=== PATIENT | male | born 1940 | race Caucasian/White ===

== ENCOUNTER → 2018-05-31 | Outpatient (CLI) | payer OTHER ==
[~2018-05-31] VITALS: Ht 180.3 cm; Wt 95.3 kg
[~2018-05-31] MED LIST: PRINIVIL20 MG PO; XARELTO15 MG PO
[2018-05-31 09:15] LABS: CALCIUM 9.7 mg/dL (8.5-10.1); CREATININE 1.1 mg/dL (0.6-1.3); POTASSIUM 4.7 mmol/L (3.5-5.1)
[2018-05-31 09:31] LABS: ABSOLUTE EOSINOPHILS 0.1 thou/uL (0.0-0.7); ABSOLUTE LYMPHOCYTES 1.2 thou/uL (0.8-5.3); ABSOLUTE MONOCYTES 0.6 thou/uL (0.0-1.2); ABSOLUTE NEUTROPHILS 3.6 thou/uL (1.6-8.1); BASOPHILS 0.5 %; EOSINOPHILS 2.7 %; HEMATOCRIT 43.3 % (42.0-52.0); HEMOGLOBIN 14.6 gm/dL (14.0-18.0); LYMPHOCYTES 21.2 %; MCH 32.2 pg (26.0-34.0); MCHC 33.7 g/dL (28.0-37.0); MCV 95.5 fL (80.0-100.0); MONOCYTES 10.7 %; MPV 8.8 fl. (7.2-11.1); NUCLEATED RBCS 0 /100WBC; PLATELET COUNT* 169 thou/uL (150-400); POLYS 64.9 %; RBC 4.53 mil/uL (4.50-6.00); RDW-CV 14.5 % (10.5-14.5); WBC 5.5 thou/uL (4.0-11.0)
[2018-05-31 11:18] VITALS: BP 146/78
== END ==
LOC: M.ULTRA 07:30 → M.ERS 07:36
PROVIDERS: Emergency Medicine Emergency Medical Services
DX: I82.432 Acute embolism and thrombosis of left popliteal vein (principal); I82.442 Acute embolism and thrombosis of left tibial vein; I10 Essential (primary) hypertension

== ENCOUNTER → 2018-06-26 | Outpatient (CLI) | payer OTHER | LOC: M.ULTRA 07:26 | DX: I82.432 Acute embolism and thrombosis of left popliteal vein (principal); I82.442 Acute embolism and thrombosis of left tibial vein ==

== ENCOUNTER → 2018-07-09 | Outpatient (CLI) | payer OTHER ==
--- NOTE | 2018-07-09 12:03 | 2DMMODE ---
[place] [address] 2 D/M-MODE ECHOCARDIOGRAM Name: AMBROSIO SUNSHINE Room: [facility]#: [id number] Admission: 07/09/18 Attend Phys: Joce Huffman Discharge: Date of : 38 Date of Service: 07/09/18 1203 Report #: [id number] THIS REPORT FOR: //name// APPROVED REPORT Study performed: 07/09/2018 07:59:44 EXAM: Comprehensive 2D, Doppler, and color-flow Echocardiogram Patient Location: Out-Patient BSA: 2.10 HR: 72 bpm BP: 116/72 mmHg Other Information Study Quality: Good Indications Hypertension/HDD 2D Dimensions IVSd: 11.04 (7-11mm) LVOT Diam: 20.03 (18-24mm) LVDd: 35.53 mm PWd: 11.54 (7-11mm) Ascending Ao: 34.49 (22-36mm) LVDs: 21.50 (25-40mm) Aortic Root: 25.61 mm Volumes Left Atrial Volume (Systole) LA ESV Index: 11.90 mL/m2 Aortic Valve AoV Peak Victor Hugo.: 1.34 m/s AO Peak Gr.: 7.16 mmHg LVOT Max P.14 mmHg AO Mean Gr.: 3.76 mmHg LVOT Mean P.39 mmHg LVOT Max V: 0.89 m/s AO V2 VTI: 23.82 cm LVOT Mean V: 0.53 m/s TAMERA (VTI): 3.22 cm2 LVOT V1 VTI: 24.33 cm Mitral Valve E/A Ratio: 0.45 MV Decel. Time: 379.17 ms MV E Max Victor Hugo.: 0.48 m/s MV PHT: 109.96 ms MVA (PHT): 2.00 [place] [address] 2 D/M-MODE ECHOCARDIOGRAM Name: AMBROSIO SUNSHINE Room: [facility]#: [id number] Admission: 07/09/18 Attend Phys: Joce Huffman Discharge: Date of : 38 Date of Service: 07/09/18 1203 Report #: [id number] TDI E/Lateral E': 5.33 E/Medial E': 8.00 Medial E' Victor Hugo.: 0.06 m/s Lateral E' Victor Hugo.: 0.09 m/s Pulmonary Valve PV Peak Victor Hugo.: 0.99 m/s PV Peak Gr.: 3.94 mmHg Tricuspid Valve RAP Estimate: 5.00 mmHg TR Peak Gr.: 21.65 mmHg RVSP: 26.65 mmHg PA Pressure: 26.65 mmHg Left Ventricle The left ventricle is normal size. There is normal LV segmental wall motion. There is normal left ventricular wall thickness. Left ventricular systolic function is normal. LVEF is 55-60%. Grade I - abnormal relaxation pattern. Right Ventricle The right ventricle is normal size. The right ventricular systolic function is normal. Atria The left atrium size is normal. The right atrium size is normal. Aortic Valve The aortic valve is normal in structure. Trace aortic regurgitation. There is no aortic valvular stenosis. Mitral Valve The mitral valve is normal in structure. Mild mitral regurgitation. No evidence of mitral valve stenosis. Tricuspid Valve The tricuspid valve is normal in structure. Mild tricuspid regurgitation. The RVSP is 32 mmHg. Pulmonic Valve The pulmonary valve is normal in structure. There is no pulmonic valvular regurgitation. Great Vessels The aortic root is normal in size. IVC [place] [address] 2 D/M-MODE ECHOCARDIOGRAM Name: AMBROSIO SUNSHINE CAT Room: [facility]#: [id number] Admission: 07/09/18 Attend Phys: Joce Huffman Discharge: Date of : 38 Date of Service: 07/09/18 1203 Report #: [id number] collapses >50% with inspiration. Pericardium There is no pericardial effusion. <Conclusion> The left ventricle is normal size. There is normal left ventricular wall thickness. Left ventricular systolic function is normal. LVEF is 55-60%. Grade I - abnormal relaxation pattern. Trace aortic regurgitation. Mild mitral regurgitation. Mild tricuspid regurgitation. The RVSP is 32 mmHg. IVC is normal in size and collapses >50% with inspiration. <ELECTRONICALLY SIGNED> By: Joao Chau MD, FACC 07/09/18 1203 120 120 Joao Chau MD, FACC /INF
== END ==
LOC: M.CRD 07:50
DX: I08.1 Rheumatic disorders of both mitral and tricuspid valves (principal); I10 Essential (primary) hypertension; Z88.5 Allergy status to narcotic agent

== ENCOUNTER 2020-06-01 23:48 | Emergency (ER) | payer OTHER ==
[~2020-06-01] VITALS: Ht 180.3 cm; Wt 95.3 kg
[2020-06-02 01:26] LABS: APTT 26.3 Seconds (25.0-31.3); INR 1.2; PROTIME 13.1 Seconds (9.20-11.50)
[2020-06-02 01:30] LABS: CALCIUM 8.3 mg/dL (8.5-10.1); CREATININE 2.2 mg/dL (0.6-1.3)
[2020-06-02 01:34] LABS: ALBUMIN 2.5 g/dL (3.4-5.0); MAGNESIUM 1.9 mg/dL (1.8-2.4); TOTAL BILIRUBIN 1.1 mg/dL (<0.1-1.0); TOTAL PROTEIN 5.8 g/dL (6.4-8.2)
[2020-06-02 01:41] LABS: HEMOGLOBIN 11.1 gm/dL (14.0-18.0); RDW-CV 15.3 % (10.5-14.5)
[2020-06-02 02:08] LABS: MCH 31.7 pg (26.0-34.0); MCHC 31.6 g/dL (28.0-37.0); MCV 100.1 fL (80.0-100.0); MPV 9.3 fl. (7.2-11.1); NUCLEATED RBCS 0 /100WBC; PLATELET COUNT* 154 thou/uL (150-400); WBC 11.4 thou/uL (4.0-11.0)
[2020-06-02 03:55] LABS: BE -18.2 mmol/L (-2 to +3); PCO2 33.4 mmHg (35.0-45.0); PO2 97.5 mmHg (75.0-100.0)
[2020-06-02 03:57] LABS: pH 7.108 (7.340-7.450)
[2020-06-02 04:15] LABS: ABSOLUTE EOSINOPHILS 0.1 thou/uL (0.0-0.7); ABSOLUTE LYMPHOCYTES 3.1 thou/uL (0.8-5.3); ABSOLUTE MONOCYTES 1.1 thou/uL (0.0-1.2); ABSOLUTE NEUTROPHILS 7.1 thou/uL (1.6-8.1); ATYPICAL LYMPHS 1 %
[2020-06-02 04:16] LABS: PLATELET ESTIMATE ADEQUATE
[2020-06-02 10:42] VITALS: BP 0/0
--- NOTE | 2020-06-03 12:42 | EKG ---
[place] [id number] ELECTROCARDIOGRAM REPORT Name: AMBROSIO SUNSHINE Room: [facility]#: [id number] Admission: 06/01/20 Attend Phys: Discharge: 06/02/20 Date of : 38 Date of Service: 06/01/20 2351 Report #: [id number] THIS REPORT FOR: //name// [facility] ED Test Date: 2020-06-01 Test Time: 23:51:56 Pat Name: AMBROSIO SUNSHINE Department: Room: Gender: Rn Lvn: UNKNOWN : 1940 Requested By: Montse Finn Order Number: [id number] Raghavendra MD: Slick Bella Measurements Intervals [place] Rate: 68 P: 14 MS: 205 QRS: -20 QRSD: 144 T: -15 QT: 419 QTc: 446 Interpretive Statements Sinus rhythm Multiple premature complexes, vent & supraven IVCD, consider atypical RBBB No previous ECG available for comparison Electronically Signed On 06-03-2020 12:42:44 ACCOUNT PROCESSOR by Slick Bella [email or web address] <ELECTRONICALLY SIGNED> By: Slick Bella MD, FAC 06/03/20 1242 2351 2351 Slick Bella MD, [facility] /EPI
== END 2020-06-02 10:46 ==
LOC: M.ERS 23:48
PROVIDERS: Personal Emergency Response Attendant
DX: I46.9 Cardiac arrest, cause unspecified (principal); I95.9 Hypotension, unspecified; R00.1 Bradycardia, unspecified; J96.90 Respiratory failure, unspecified, unspecified whether with hypoxia or hypercapnia; I10 Essential (primary) hypertension; Z86.73 Personal history of transient ischemic attack (TIA), and cerebral infarction without residual deficits; Z79.899 Other long term (current) drug therapy; Z88.5 Allergy status to narcotic agent; Z20.828 Contact with and (suspected) exposure to other viral communicable diseases